=== PATIENT | female | born 1975 | race African-American/Black ===

== ENCOUNTER 2023-03-12 12:43 | Outpatient (CLI) | payer OTHER, SELFPAY | END 2023-03-12 12:44 | disposition home or self-care (01) | LOC: OP CLINIC 12:44 | PROVIDERS: PCP Physician Assistant Medical; Visit Provider Internal Medicine | DX: Z12.11 Encounter for screening for malignant neoplasm of colon (principal); K62.1 Rectal polyp; K63.5 Polyp of colon | CPT/HCPCS: 45380; 88305; J2250; J3010 ==

== ENCOUNTER 2023-05-06 15:26 | Outpatient (CLI) | payer OTHER, SELFPAY ==
--- NOTE | 2023-05-06 15:40 | CRLHL7_ITS ---
For Patients: As a result of the Century Cures Act, medical imaging exams and procedure reports are released immediately into your electronic medical record. You may view this report before your referring provider. If you have questions, please contact your health care provider. BILATERAL SCREENING MAMMOGRAM WITH COMPUTER-AIDED DETECTION AND TOMOSYNTHESIS TECHNIQUE: CC and MLO views were obtained. These mammographic images have been obtained using full-field digital technique. These mammographic images were interpreted with the benefit of computer-aided detection. Breast Tomosynthesis was used in this interpretation. COMPARISON FILM: 05/19/21, 03/19/20. FINDINGS: There are scattered areas of fibroglandular density IMPRESSION: There is no radiographic evidence for malignancy. ASSESSMENT: BI-RADS Category 1: Negative RECOMMENDATION: Routine screening mammogram in 1 year. A lay language report of this examination will be provided to the patient. Bob Marcial M.D. Diagnostic Radiologist [email or web address] MARIANELA/Dictated by: Bob Marcial MD @ 05/07/2023 8:38:00 AM (Electronically Signed)
== END 2023-05-06 15:27 | disposition home or self-care (01) ==
LOC: MAMMO 15:27
PROVIDERS: PCP Physician Assistant Medical; Visit Provider Physician Assistant Medical
DX: Z12.31 Encounter for screening mammogram for malignant neoplasm of breast (principal)
CPT/HCPCS: 77063; 77067

== ENCOUNTER 2023-05-31 10:37 | Outpatient (CLI) | payer MEDICAID, SELFPAY | END 2023-05-31 10:38 | disposition home or self-care (01) | LOC: NFLDREF 06-02 00:56 | PROVIDERS: PCP Physician Assistant Medical; Visit Provider Physician Assistant Medical | DX: R79.89 Other specified abnormal findings of blood chemistry (principal) | CPT/HCPCS: 82306 ==

== ENCOUNTER 2024-09-27 14:26 | Outpatient (CLI) | payer MEDICAID, SELFPAY | END 2024-09-27 14:27 | disposition home or self-care (01) | PROVIDERS: PCP Physician Assistant Medical; Visit Provider Physician Assistant Medical | DX: I10 Essential (primary) hypertension (principal); R79.89 Other specified abnormal findings of blood chemistry; E66.9 Obesity, unspecified; M79.671 Pain in right foot; M79.672 Pain in left foot | CPT/HCPCS: 80053; 80061; 82306; 82607; 82728; 84443; 86200; 86431 ==

== ENCOUNTER 2025-02-28 11:41 | Outpatient (CLI) | payer MEDICAID, SELFPAY ==
[2025-02-28 23:08] LABS: Chlamydia DNA Amplified* NOT DETECTED (No Detected); GC DNA Amplified* NOT DETECTED (No Detected)
== END 2025-02-28 11:42 | disposition home or self-care (01) ==
PROVIDERS: PCP Physician Assistant Medical; Visit Provider Obstetrics & Gynecology
DX: Z11.3 Encounter for screening for infections with a predominantly sexual mode of transmission (principal); Z11.59 Encounter for screening for other viral diseases; Z11.4 Encounter for screening for human immunodeficiency virus [HIV]
CPT/HCPCS: 86592; 86703; 86706; 86803; 87340; 87491; 87591

== ENCOUNTER 2025-04-10 08:37 | Outpatient (CLI) | payer MEDICAID, SELFPAY ==
--- NOTE | 2025-04-10 08:45 | CRLHL7_ITS ---
For Patients: As a result of the Century Cures Act, medical imaging exams and procedure reports are released immediately into your electronic medical record. You may view this report before your referring provider. If you have questions, please contact your health care provider. INDICATION: BILATEREAL SCREENING MAMMOGRAM, ASYMPTOMATIC 49 Y/O FEMALE COMPARISON: 05/06/2023, 05/19/2021, 03/19/2020 TECHNIQUE: Digital mammogram in CC and MLO projections including computer-aided detection (CAD) and tomosynthesis. BREAST COMPOSITION: There are scattered areas of fibroglandular density. FINDINGS: No suspicious findings. ASSESSMENT: BI-RADS 1 Negative RECOMMENDATION: Annual screening mammogram. A lay language report of this examination will be provided to the patient. Dictated by: Mi Parrish MD @ 04/12/2025 09:27:03 (Electronically Signed)
== END 2025-04-10 08:38 | disposition home or self-care (01) ==
LOC: MAMMO 08:38
PROVIDERS: PCP Physician Assistant Medical; Visit Provider Physician Assistant Medical
DX: Z12.31 Encounter for screening mammogram for malignant neoplasm of breast (principal)
CPT/HCPCS: 77063; 77067